=== PATIENT | male | born 1995 | race Caucasian/White ===

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

== ENCOUNTER 2019-09-29 14:11 | Emergency (ER) | payer OTHER ==
[2019-09-29 15:03] VITALS: BP 143/80
--- NOTE | 2019-09-29 16:09 | UC ---
Complaint Male HPI - HPI Summary HPI Summary: patient had unprotected sex 4 days ago and wishes testing for std--patient educated to chances that this test would not give information about an event 4 days ago he is offered Rocephin and Zithromax -- patient has no symptoms - History of Current Complaint Chief Complaint: UCGU Stated Complaint: PERSONAL Time Seen by Provider: 09/29/19 16:02 Hx Obtained From: Patient Onset/Duration: Sudden Onset, Lasting Days - 4 Timing: Constant Pain Intensity: 0 Pain Scale Used: 0-10 Numeric Location: None - Allergies/Home Medications Allergies/Adverse Reactions: Allergies Allergy/AdvReac Type Severity Reaction Status Date / Time No Known Allergies Allergy Verified 09/29/19 15:03 Home Medications: Home Medications NK [No Home Medications Reported] 09/29/19 [History Confirmed 09/29/19] PMH/Surg Hx/FS Hx/Imm Hx Previously Healthy: Yes - Surgical History Surgical History: Yes Surgery Procedure, Year, and Place: Left Ear Cyst, ~2002 - Family History Known Family History: Negative: Hypertension, Diabetes, Respiratory Disease - Social History Occupation: Employed Full-time Lives: Dormitory/Roommates Alcohol Use: Weekly Substance Use Type: None Smoking Status (MU): Never Smoked Tobacco Review of Systems All Other Systems Reviewed And Are Negative: Yes Constitutional: Positive: Negative Skin: Positive: Negative Eyes: Positive: Negative ENT: Positive: Negative Respiratory: Positive: Negative Cardiovascular: Positive: Negative Gastrointestinal: Positive: Negative Genitourinary: Positive: Negative Motor: Positive: Negative Neurovascular: Positive: Negative Musculoskeletal: Positive: Negative Neurological/Mental Status: Positive: Negative Psychological: Positive: Negative Is Patient Immunocompromised?: No Physical Exam Triage Information Reviewed: Yes Appearance: Well-Appearing, No Pain Distress, Well-Nourished Vital Signs: Initial Vital Signs Temp 98.4 F 09/29/19 14:59 Pulse 62 09/29/19 14:59 Resp 18 09/29/19 14:59 BP 143/80 09/29/19 14:59 Pulse Ox 98 09/29/19 14:59 Vital Signs Reviewed: Yes Eye Exam: Normal Eyes: Positive: Conjunctiva Clear ENT Exam: Normal ENT: Positive: Normal ENT inspection, Hearing grossly normal. Negative: Trismus , Muffled voice, Hoarse voice Dental Exam: Normal Neck exam: Normal Neck: Positive: Supple, Nontender Respiratory Exam: Normal Respiratory: Positive: Chest non-tender, No respiratory distress, No accessory muscle use Cardiovascular Exam: Normal Cardiovascular: Positive: RRR, Pulses Normal, Brisk Capillary Refill Musculoskeletal Exam: Normal Musculoskeletal: Positive: Strength Intact, ROM Intact Neurological Exam: Normal Neurological: Positive: Alert, Muscle Tone Normal Psychological Exam: Normal Skin Exam: Normal Complaint Male Course/Dx - Course Course Of Treatment: patient has elected to do a baseline test today use condom protection for the next 10-14 days and then get rechecked and treatment if indicated - Differential Dx/Diagnosis Provider Diagnosis: Screening for STDs (sexually transmitted diseases) Discharge ED - Sign-Out/Discharge Documenting (check all that apply): Patient Departure All imaging exams completed and their final reports reviewed: No Studies - Discharge Plan Condition: Stable Disposition: HOME Patient Education Materials: Sexually Transmitted Diseases (ED) Referrals: [facility] [Outside] - 2 Weeks Additional Instructions: Reminder --the test we do today will not reflect an exposure you may have had 4 days ago---. Please use a condom if you have sex for the next 10-14 days and get rechecked for std exposure-- - Billing Disposition and Condition Condition: STABLE Disposition: Home - Attestation Statements Provider Attestation: This patient was not seen by me. I was available for consult. Chart reviewed. LUISA Addendum entered and electronically signed by Meredith Zhang NP 09/29/19 16: 45: UC Addendum Addendum: immediately after discharge was complete patient changed his mind and wanted antibiotic treatment--orders put in for treatment of peewee/chly.
[2019-09-29] MEDS ORDERED: cefTRIAXone VIAL(*) 250 MG VIAL IM ONE (16:42)
[2019-09-29] MEDS ORDERED: Lidocaine 1% MPF ** 5 ML VIAL IM ONE (16:42)
[2019-09-29] MEDS ORDERED: Azithromycin TAB* 250 MG PO ONE (16:42)
[2019-10-01 13:09] LABS: Chlamydia trachomatis NAA Negative (Negative); Neisseria gonorrhoeae (GC) NAA Negative (Negative)
== END 2019-09-29 16:22 | disposition home or self-care (01) ==
LOC: UCCORT 14:11
DX: Z11.3 Encounter for screening for infections with a predominantly sexual mode of transmission (principal)
CPT/HCPCS: 87491; 87591; 87661; 96372; 99202; A9270-GY; G0463; J0696